=== PATIENT | male | born 1995 ===

== ENCOUNTER → 2025-07-13 11:09 | Outpatient (CLI) | payer MEDICAID, SELFPAY ==
--- NOTE | 2025-07-13 11:00 | DI.US_ITS ---
Exam(s) US SCROTUM EXAM: US SCROTUM CLINICAL HISTORY: left scrotal pain, s/p vas, N50.82. TECHNIQUE: Scrotal ultrasound performed using grayscale, color-flow and spectral Doppler analysis. COMPARISON: No exams were available for comparison FINDINGS: RIGHT TESTICLE: 5.5 x 2.7 x 3.4 cm Echogenicity: Normal. Contour: Smooth. Mass: None seen. Microlithiasis: None. Hydrocele: None. Varicocele: None. Inguinal canal: No visible hernia. No peristalsing bowel loop identified. Epididymis: 2 millimeter spermatocele in the head. Scrotum: Normal. LEFT TESTICLE: 4.8 x 2.5 x 3.5 cm Echogenicity: Normal. Contour: Smooth. Mass: None seen. Microlithiasis: None. Hydrocele: Minimal fluid with some debris. Varicocele: None. Inguinal canal: Mild edema versus small hematoma measuring 11 x 17 millimeters with mild hyperemia. Findings are consistent with postsurgical changes due to recent vasectomy. No evidence of hernia. No peristalsing bowel loop identified. Epididymis: Normal. Scrotum: Normal. DOPPLER: Color: Symmetric and uniform, no hyperemia. Duplex: Bilateral testicular arterial waveforms visualized. IMPRESSION: Normal appearing bilateral testicles and epididymi. Small hematoma versus postsurgical edema in the left inguinal canal, corresponding to the region of patient pain. DATA REPOSITORY:
== END ==
LOC: DI 11:09
PROVIDERS: PCP Physician Assistant; Visit Provider Nurse Practitioner Gerontology
DX: N50.82 Scrotal pain (principal)
CPT/HCPCS: 76870